=== PATIENT | female | born 1980 | race African-American/Black ===

== ENCOUNTER 2019-05-03 14:58 | Emergency (ER) | payer BC ==
[~2019-05-03] VITALS: Ht 177.8 cm; Wt 124.7 kg
[2019-05-03] MEDS ORDERED: CORICIDIN COLD1 EACH PO (16:27)
[2019-05-03] MEDS ORDERED: AFRIN15 ML NASAL (16:27)
[2019-05-03] MEDS ORDERED: PREDNISONE 20 M20 MG PO (16:27)
[2019-05-03 16:42] VITALS: BP 154/82
== END 2019-05-03 16:44 | disposition home or self-care (01) ==
LOC: ER 14:58
DX: J32.9 Chronic sinusitis, unspecified (principal); I10 Essential (primary) hypertension

== ENCOUNTER 2019-10-17 22:21 | Emergency (ER) | payer BC ==
[~2019-10-17] VITALS: Ht 177.8 cm; Wt 135.2 kg
[~2019-10-17 22:21] MED LIST: AFRIN15 ML NASAL; CORICIDIN COLD1 EACH PO; PREDNISONE 20 M20 MG PO
[2019-10-17] MEDS ORDERED: METFORMIN HCL500 M3 PO (22:39)
[2019-10-18] MEDS ORDERED: PERCOCET PO (00:16)
[2019-10-18] MEDS ORDERED: BACTRIM DS TAB1 EACH PO (00:16)
[2019-10-18 00:31] VITALS: BP 150/89
== END 2019-10-18 00:32 | disposition home or self-care (01) ==
LOC: ER 22:21
DX: L02.213 Cutaneous abscess of chest wall (principal); I10 Essential (primary) hypertension; Z79.899 Other long term (current) drug therapy